=== PATIENT | male | born 1980 ===

== ENCOUNTER 2017-03-27 12:10 | Observation (INO) | payer SELFPAY ==
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
[2017-03-27 13:11] LABS: BASO # 0.04 K/mm3 (0.0-2.0); BASO % 0.6 % (0.0-3.0); EOS # 0.3 (0.0-0.7); EOS % 3.8 % (1.5-5.0); GRAN # 4.46 (1.4-6.5); GRAN % 62.2 % (50.0-68.0); HEMOGLOBIN 15.1 gm/dL (14.0-18.0); LYMPH # 1.8 (1.2-3.4); MEAN CELL VOLUME 85.2 fL (80.0-105.0); MEAN CORPUSCULAR HEMOGLOBIN 29.4 pg (25.0-35.0); MEAN CORPUSCULAR HGB CONC 34.6 g/dl (31.0-37.0); MEAN PLATELET VOLUME 9.9 fl (7.0-11.0); MONO # 0.6 (0.1-0.6); MONO % 8.4 % (1.0-6.0); PLATELET COUNT 249 10^3/uL (120.0-450.0); RBC 5.13 10^6/uL (3.5-6.1); RED CELL DISTRIBUTION WIDTH 13.5 % (11.5-14.5); WHITE BLOOD COUNT 7.2 10^3/ul (4.5-11.0)
[2017-03-27 13:16] LABS: INR 0.98 (0.93-1.08); PROTHROMBIN TIME 10.6 Seconds (9.9-11.8)
[2017-03-27 13:19] LABS: ALB/GLOB RATIO 1.1 (1.1-1.8); ALBUMIN 4.2 g/dL (3.0-4.8); ALT/SGPT 89 U/L (7-56); AST/SGOT 60 U/L (15-59); BILIRUBIN,DIRECT 0.4 mg/dL (0.0-0.4); BLOOD UREA NITROGEN 16 mg/dL (7-21); CALCIUM 9.3 mg/dL (8.4-10.5); GFR AFRICAN-AMERICAN > 60; GFR NON-AFRICAN AMERICAN > 60; LIPASE 71 U/L (23-300); MAGNESIUM 1.6 mg/dL (1.7-2.2)
[2017-03-27] MEDS ORDERED: Iodixanol 320 MG/ML 100 ML BOTTLE IV ONE (13:25)
[2017-03-27 13:30] LABS: B-TYPE NATRIURETIC PEPTIDE 24.2 pg/mL (0-450); TROPONIN I < 0.01 ng/mL
[2017-03-27] MEDS ORDERED: Iodixanol 320 mg/ml 150 ml Bottle IV ONE (13:45)
--- NOTE | 2017-03-27 14:06 | US ---
HISTORY: epigastric abd pain COMPARISON: None. TECHNIQUE: Sonographic evaluation of the abdomen. FINDINGS: LIVER: Measures 17.6 cm. Mild increased echogenicity of the liver parenchyma. Borderline prominent liver size -patient noted to have a large body habitus No mass. No intrahepatic bile duct dilatation. GALLBLADDER: Unremarkable. No gallstones. COMMON BILE DUCT: Measures 3.6 mm. No stones. No dilatation. PANCREAS: Unremarkable as visualized. No mass. No ductal dilatation. RIGHT KIDNEY: Measures 10.5 x 3.8 x 6.4cm. Normal echogenicity. No calculus, mass, or hydronephrosis. LEFT KIDNEY: Measures 11.4 x 4.9 x 6.1cm. Normal echogenicity. No calculus, mass, or hydronephrosis. SPLEEN: Normal in size and contour. No mass. AORTA: Not visualized- prominent bowel gas and large body habitus IVC: Not visible -prominent bowel gas and large body habitus OTHER FINDINGS: None. IMPRESSION: Borderline mild hepatomegaly. Probable hepatic steatosis. Large body habitus noted - probable possibly contributing to these findings. No gallbladder pathology noted
--- NOTE | 2017-03-27 14:30 | RAD ---
HISTORY: chest pain COMPARISON: No prior. TECHNIQUE: Chest PA and lateral FINDINGS: LUNGS: No active pulmonary disease. PLEURA: No significant pleural effusion identified. No pneumothorax apparent. CARDIOVASCULAR: Normal. OSSEOUS STRUCTURES: No significant abnormalities. VISUALIZED UPPER ABDOMEN: Normal. OTHER FINDINGS: None. IMPRESSION: No active disease.
--- NOTE | 2017-03-27 14:53 | CT ---
PROCEDURE: CT Angiography Chest, Abdomen and Pelvis with and without intravenous contrast HISTORY: cp to the back - r/o dissection/PE COMPARISON: None. TECHNIQUE: Contiguous axial images of the chest, abdomen and pelvis were obtained in the phase of aortic enhancement. A noncontrast enhanced CT of the chest was also obtained to evaluate for possible intramural thrombus. Coronal and sagittal reformats were generated. IV dose administered: 150 cc of Visipaque Radiation dose: Total exam DLP = 1486 mGy-cm. This CT exam was performed using one or more of the following dose reduction techniques: Automated exposure control, adjustment of the mA and/or kV according to patient size, and/or use of iterative reconstruction technique. FINDINGS: CT ANGIOGRAPHY OF THE CHEST WITH & WITHOUT CONTRAST: AORTA (CHEST AND ABDOMEN): The thoracic and abdominal aorta are unremarkable, without aneurysm, dissection or rupture. No intramural thrombus identified in the thoracic aorta on the non-contrast ct of the chest. The celiac axis, superior mesenteric artery, inferior mesenteric artery and the renal arteries are widely patent. The pelvic arteries are unremarkable. LUNGS: Clear. No nodule, mass or consolidation. MEDIASTINUM: Unremarkable. Normal caliber aorta and pulmonary arterial trunk. No aortic dissection. Normal size heart. LYMPH NODES: Unremarkable. PLEURA: Unremarkable. No pneumothorax. No pleural fluid. BONES: Unremarkable. OTHER FINDINGS: None. CT ANGIOGRAPHY OF THE ABDOMEN AND PELVIS WITH CONTRAST: LIVER: There is diffuse fatty infiltration of the liver GALLBLADDER AND BILE DUCTS: Unremarkable. PANCREAS: Unremarkable. No gross lesion or ductal dilatation. SPLEEN: Unremarkable. ADRENALS: Unremarkable. No mass. KIDNEYS AND URETERS: Unremarkable. No hydronephrosis. No solid mass. VASCULATURE: Unremarkable. No aortic aneurysm. STOMACH AND BOWEL: Unremarkable. No obstruction. No gross mural thickening. APPENDIX: Normal appendix. PERITONEUM: Unremarkable. No free fluid. No free air. LYMPH NODES: Unremarkable. No enlarged lymph nodes. BLADDER: Unremarkable. REPRODUCTIVE: Unremarkable. BONES: No acute fracture. OTHER FINDINGS: None. IMPRESSION: No evidence of dissection or aneurysm. No evidence of pulmonary embolus.
[2017-03-27 15:02] LABS: PH,URINE 6.5 (4.7-8.0); URINE BILIRUBIN NEGATIVE (NEGATIVE); URINE BLOOD NEGATIVE (NEGATIVE); URINE GLUCOSE (UA) NEGATIVE (NEGATIVE); URINE LEUKOCYTE ESTERASE NEGATIVE Leu/uL (NEGATIVE); URINE NITRATE NEGATIVE (NEGATIVE); URINE PROTEIN NEGATIVE mg/dL (<30 mg/dL); URINE UROBILINOGEN 0.2 E.U./dL (<1 E.U./dL)
[2017-03-27 15:10] LABS: URINE APPEARANCE CLEAR (CLEAR); URINE COLOR LIGHT YELLOW (YELLOW)
[2017-03-27 15:37] LABS: BARBITURATES, UR NEGATIVE (NEGATIVE); BENZODIAZEPINES, UR NEGATIVE (NEGATIVE); OPIATES, UR NEGATIVE (NEGATIVE); PHENCYCLIDINE, UR NEGATIVE (NEGATIVE)
[2017-03-27 17:01] VITALS: BMI 29.2
[2017-03-27] MEDS ORDERED: Pneumococcal 23-Valent Vaccine IM ONE (17:01)
[2017-03-27] MEDS ORDERED: Magnesium Sulfate 2 GM in Sodium Chloride 0.9% 100 ML IVPB ONE (17:19)
[2017-03-27 21:19] LABS: TROPONIN I < 0.01 ng/mL
--- NOTE | 2017-03-27 21:33 | CON ---
DATE: 03/27/2017 REASON FOR CONSULTATION: Followup cardiac evaluation, chest pain. BRIEF CLINICAL HISTORY: This is a 36-year-old male with no significant past medical history except history of gastritis, history of endoscopy 2 years ago, and takes off and on Zantac when he takes fatty food and citrus food, came in with 2 days history of chest pain, front of the chest, epigastric area, goes to the back, came to the emergency room. Denies any prior episode of chest pain, dyspnea on exertion, or shortness of breath on exertion. PAST MEDICAL HISTORY: As mentioned, history of gastritis, history of endoscopy 2 years ago. FAMILY HISTORY: Noncontributory. No history of coronary artery disease. SOCIAL HISTORY: Smokes 6 to 7 cigarettes a day. Denies any history of alcohol abuse. Denies any history of substance abuse. CURRENT MEDICATIONS: None, but takes every now and then Zantac at bedtime when he takes fatty food or citrus fruit or food. REVIEW OF SYSTEMS: As per HPI. PHYSICAL EXAMINATION GENERAL: Height of the patient 5 feet 11 inches, weight of the patient 210 pounds, body mass index 29.3 kg/m2. VITAL SIGNS: Temperature afebrile, heart rate 80, blood pressure 124/72. HEENT: PERRLA. Extraocular muscles intact. NECK: Supple. No carotid bruit or thyromegaly. HEART: S1, S2 regular. LUNGS: Chest clear to auscultation. ABDOMEN: Soft. EXTREMITIES: Clubbing and cyanosis negative. LABORATORY DATA: Blood workup as follows, WBC 7.8, hemoglobin 15.0, hematocrit 43.7, platelet count 249. Chemistry shows sodium 137, potassium 4.1, chloride 103, carbon dioxide 27, anion gap of 13, BUN 16, creatinine 1.1, magnesium 1.6, troponin 0.01. EKG shows normal sinus rhythm, acute ST-T changes. IMPRESSION: Chest pain, appears atypical, cannot rule out underlying coronary artery disease, multiple risk factors for coronary artery disease, history of gastritis, hypomagnesemia. RECOMMENDATION: Supplement magnesium. Followup CPK, troponin. We will get lipid profile, TSH, hemoglobin A1c. If troponin remains negative, we will get an echo and a stress test in the morning. Keep n.p.o. after 12 midnight for stress test. Thank you Dr. Pino, for the opportunity in taking care of the patient. Hannah Guardado MD cc: Susana Pino MD
--- NOTE | 2017-03-27 22:55 | CP.PCM.PN ---
Subjective - Date & Time of Evaluation Date of Evaluation: 03/27/17 Time of Evaluation: 22:38 - Subjective Subjective: Pt seen for his c/o insomnia.He states he takes Nyquil at home whenever he needs something to fall asleep. He denies any active chest pain or any other complaints. He is admitted for c/o chest pain. PMH:HPylori Objective - Vital Signs/Intake and Output Vital Signs (last 24 hours): Temp Pulse Resp BP Pulse Ox 97.7 F 72 20 103/55 L 98 03/27/17 17:31 03/27/17 22:00 03/27/17 17:31 03/27/17 17:31 03/27/17 17:20 - Medications Medications: Current Medications Aspirin (Aspirin Chewable) 81 mg PO DAILY GIOVANNI Enoxaparin Sodium (Lovenox) 40 mg SC DAILY GIOVANNI PRN Reason: Protocol Famotidine (Pepcid) 20 mg PO DAILY PRN PRN Reason: Heartburn - Labs Labs: PT 10.6 Seconds (9.9-11.8) 03/27/17 12:50 INR 0.98 (0.93-1.08) 03/27/17 12:50 APTT 26.0 Seconds (23.7-30.8) 03/27/17 12:50 - Constitutional Appears: No Acute Distress - Eye Exam Eye Exam: PERRL - ENT Exam ENT Exam: Mucous Membranes Moist - Neck Exam Neck Exam: Normal Inspection - Respiratory Exam Respiratory Exam: Clear to Ausculation Bilateral - Cardiovascular Exam Cardiovascular Exam: REGULAR RHYTHM - GI/Abdominal Exam GI & Abdominal Exam: Soft, Normal Bowel Sounds - Extremities Exam Extremities Exam: Normal Inspection - Neurological Exam Neurological Exam: Awake, Oriented x3 - Psychiatric Exam Psychiatric exam: Normal Affect - Skin Skin Exam: Dry, Warm Assessment and Plan - Assessment and Plan (Free Text) Assessment: Insomnia Plan: Benadryl 25 mg po
[2017-03-28 00:27] VITALS: O2SAT 97
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
[2017-03-28 05:37] LABS: BASO # 0.03 K/mm3 (0.0-2.0); BASO % 0.4 % (0.0-3.0); EOS # 0.3 (0.0-0.7); EOS % 4.4 % (1.5-5.0); GRAN # 5.11 (1.4-6.5); GRAN % 65.6 % (50.0-68.0); LYMPH # 1.8 (1.2-3.4); LYMPH % 22.8 % (22.0-35.0); MEAN CELL VOLUME 85.3 fL (80.0-105.0); MEAN CORPUSCULAR HEMOGLOBIN 29.5 pg (25.0-35.0); MEAN CORPUSCULAR HGB CONC 34.6 g/dl (31.0-37.0); MEAN PLATELET VOLUME 9.8 fl (7.0-11.0); MONO # 0.5 (0.1-0.6); MONO % 6.8 % (1.0-6.0); PLATELET COUNT 249 10^3/uL (120.0-450.0); RBC 5.09 10^6/uL (3.5-6.1); RED CELL DISTRIBUTION WIDTH 13.1 % (11.5-14.5); WHITE BLOOD COUNT 7.8 10^3/ul (4.5-11.0)
[2017-03-28 05:57] LABS: BLOOD UREA NITROGEN 19 mg/dL (7-21); GFR AFRICAN-AMERICAN > 60; GFR NON-AFRICAN AMERICAN > 60; HDL CHOLESTEROL 35 mg/dL (29-60)
[2017-03-28 06:07] LABS: TROPONIN I < 0.01 ng/mL
[2017-03-28 06:08] LABS: LDL CHOLESTEROL 109 mg/dL (0-129)
[2017-03-28] MEDS ORDERED: Pantoprazole 40 mg EC Tab PO STA (08:49)
--- NOTE | 2017-03-28 09:47 | CARD ---
APPROVED REPORT EKG Measurement Heart [id number] <Conclusion> Normal sinus rhythm Normal ECG
[2017-03-28] MEDS ORDERED: Enoxaparin 40 mg Syringe SC SCH (10:00)
--- NOTE | 2017-03-28 11:27 | PN ---
DATE: 03/28/2017 REASON FOR CONSULTATION: Followup cardiac evaluation, chest pain. SUBJECTIVE: The patient complained of same chest pain, pushing from front to the back of the chest. PHYSICAL EXAMINATION: GENERAL: Not in apparent distress. Sleeping and waking up complaining of chest pain. VITAL SIGNS: As follows: Temperature afebrile, heart rate 82, blood pressure 125/83. HEENT: PERRLA. Extraocular muscles are intact. NECK: Supple. No carotid bruits or thyromegaly. HEART: S1 and S2. Regular. LUNGS: Chest clear to auscultation. ABDOMEN: Soft. EXTREMITIES: Clubbing and cyanosis negative. LABORATORY DATA: Blood workup as follows: WBC 7.8, hemoglobin 15, hematocrit 43.4, and platelet count 249. Chemistry shows a sodium of 130, potassium 4.0, chloride 101 ,carbon dioxide 25, anion gap of 14, BUN 19, creatinine 1.2, troponin is 0.01 and negative x3. Triglycerides 408, cholesterol 198, LDL 109, HDL 35. TSH is 0.89. IMPRESSION: Atypical chest pain, no evidence for acute myocardial infarction; hypertriglyceridemia; hypomagnesemia. CAT scan of the abdomen and pelvis shows no evidence of pulmonary embolism and no evidence of dissection. Ultrasound of the abdomen was tedious but no significant pathology except mildly borderline enlarged liver. A 36-year-old male with no significant past medical history, except gastroesophageal reflux who complained of chest pain, atypical. So far no evidence of acute myocardial infarction, except hypertriglyceridemia and hypomagnesemia. RECOMMENDATIONS: We will get a stress test and echo today. Rest of the workup is negative. Supplement magnesium. Repeat magnesium level too. We will start Lopid because of hypertriglyceridemia to prevent pancreatitis 600 mg p.o. b.i.d. We will get a stress test and echo today. Further recommendation after finding of the initial workup. We will follow with you. Thank Dr. Pino for the opportunity in taking care of Chris Guillory. Hannah Guardado MD
--- NOTE | 2017-03-28 13:07 | CARD ---
APPROVED REPORT EXAM: Two-dimensional and M-mode echocardiogram with Doppler and color Doppler. INDICATION Chest Pain 2D DIMENSIONS Left Atrium (2D)3.5 (1.6-4.0cm)IVSd1.0 (0.7-1.1cm) LVDd4.1 (3.9-5.9cm)PWd0.8 (0.7-1.1cm) LVDs2.9 (2.5-4.0cm)FS (%) 30.8 % LVEF (%)58.9 (>50%) M-Mode DIMENSIONS Aortic Root2.70 (2.2-3.7cm)Aortic Cusp Exc.1.80 (1.5-2.0cm) Aortic Valve AoV Peak Wlgbdxwe719.0cm/Jania Peak GR.4mmHg Mitral Valve MV E Gcbefwke01.2cm/sMV A Gdsiuumm51.8cm/sE/A ratio1.3 TDI E/Lateral E'0.0E/Medial E'0.0 Tricuspid Valve TR Peak Zobesjav392va/sRAP [id number] Peak Gr.11mmHg [id number] LEFT VENTRICLE The left ventricle is normal size. There is normal left ventricular wall thickness. The left ventricular function is normal.EF-55-60% There is normal LV segmental wall motion. The left ventricular diastolic function is normal. No left ventricle thrombus noted on this study. There is no ventricular septal defect visualized. There is no left ventricular aneurysm. There is no mass noted in the left ventricle. RIGHT VENTRICLE The right ventricle is normal size. There is normal right ventricular wall thickness. The right ventricular systolic function is normal. ATRIA The left atrium size is normal. The right atrium size is normal. The interatrial septum is intact with no evidence for an atrial septal defect. AORTIC VALVE The aortic valve is thickened but opens well. There is trace aortic regurgitation. There is no aortic valvular stenosis. There is no aortic valvular vegetation. MITRAL VALVE The mitral valve is thickened but opens well. Mitral regurgitation is trace. There is no mitral valve stenosis. There is no evidence of mitral valve prolapse. TRICUSPID VALVE The tricuspid valve leaflets are thickened , but open well. There is trace tricuspid regurgitation.RVSP-21 mmof hg. There is no tricuspid valve stenosis. There is no tricuspid valve prolapse or vegetation. PULMONIC VALVE The pulmonary valve is normal in structure. There is no pulmonic valvular regurgitation. There is no pulmonic valvular stenosis. GREAT VESSELS The aortic root is normal in size. The ascending aorta is normal in size. The pulmonary artery is normal. The IVC is normal in size and collapses >50% with inspiration. PERICARDIAL EFFUSION There is no pleural effusion. There is no pericardial effusion. <Conclusion> Normal Chamber Size. EF-55-60% Trace MR/TR RVSP-21 mmof Hg. No PE/ vegetation noted.
[2017-03-28 13:56] VITALS: PULSE 68
[2017-03-28 14:13] VITALS: BP 134/84; RESP 16; TEMP 98
--- NOTE | 2017-03-28 23:02 | CARD ---
APPROVED REPORT Protocol: FABRIZIO Test Type: Sestamibi Stress Test Attending Physician: Dr. Guardado Referring Physician: Dr. Pino Test Indications: Chest Pain, SOB Height:5 ft 11 in Weight:210lbs Medications: ASpirin,Enoxaparin,Famotidine, Protonix Medical History: 36 y/o male. No cardiac hx.Pt. having chest pain. Target HR: 183 bpm Resting ECG: normal Resting Heart Rate: 91 bpm Resting Blood Pressure: 120/86mmHg Submaximum (85%): 156 bpm POST EXERCISE Reason for Termination: Fatigue Target HR: No Max HR: 171 bpm 96% of Maximum Predicted HR: 183 bpm Exercise duration: 09:15 min:sec, 4 Stage Exercise capacity: 10.5METs Max Blood Pressure: 160/80mmHg Blood Pressure response to exercise: normal resting BP - appropriate response Heart Rate response to exercise: appropriate Chest Pain: No, none Angina index: 0 Arrhythmia: No, none ST Change: No, none Deviation: 0 mm TEST SUMMARY [id number]:250.00.01.060/.0. [id number]/86.0. PRETESTWARM-UP06:500.00.01.092/.0. EXERCISESTAGE 103:[id number]/84.0. EXERCISESTAGE 203:[id number]/80.0. EXERCISESTAGE 303:[id number]/80.0. EXERCISESTAGE 400:[id number]/80.0. SPEGSMTA77:060.00.01.920054/70.0. INTERPRETATION Stress EKG Conclusion: Negative stresstest for ischemia and for chest pain, Nuclear scan to follow. ( Off Note:at the end of stress test during recovery pt dropped BP to 100/60 and felt dizzy, 250 N/s given Bp improved to 124/70, no c/o of chest pain nor any changes in ECG noted, pt was continously being monitored, Pt did not eat well yesteday and was NPO more than 15 hours, * pm last night).. Signed by Geo Electronically Approved: 03/28/2017 11:38:17 EXAM: Myocardial Perfusion REST/STRESS Stress Test Type: Exercise Treadmill Imaging Protocol Rest Spect myocardial perfusion imaging was performed in supine position 45 minutes following the injection of 10.4 mCi of Tc-99 Myoview. At peak stress, the patient was injected intravenously with 30.4mCi of Tc-99 tetrofosmin after an exercise time of 9 minutes and 15 seconds. Gated Stress Spect was performed 50 minutes after intravenous Tc-99 Myoview injection. The images were gated to evaluate regional wall motion and calculate ventricular ejection fraction.Images were reconstructed using backfilter projection method in short horizontal and verticle long axis. Spect slices were generated. LV Perfusion The quality of the study is good. The left ventricle is normal in size. The right ventricle is unremarkable. The lung uptake is within normal limits. The distribution of tracer reveals normal uptake pattern throughout the LV myocardium on the stress study. The rest myocardial perfusion study shows no significant change. Wall Motion Wall motion study shows good contractility of the left ventricle. LVEF = 63%. Conclusion 1. Normal SPECT myocardial perfusion study. 2. Normal gated wall motion of the left ventricle.
[2017-03-29] MEDS ORDERED: Pantoprazole 40 mg EC Tab PO SCH (06:00)
--- NOTE | 2017-03-29 23:40 | CP.PCM.DIS ---
Provider - Provider Date of Admission: 03/27/17 15:22 for 03/28/17 Attending physician: Susana Pino MD Primary care physician: NO PRIMARY CARE PROVIDER Time Spent in preparation of Discharge (in minutes): 50 Diagnosis - Discharge Diagnosis (1) Hypercholesteremia Status: Acute (2) Hypercholesterolemia with endogenous hyperglyceridemia Status: Acute (3) Obesity Status: Acute Hospital Course - Lab Results Lab Results: Most Recent Lab Values WBC 7.8 10^3/ul (4.5-11.0) 03/28/17 04:30 RBC 5.09 10^6/uL (3.5-6.1) 03/28/17 04:30 Hgb 15.0 gm/dL (14.0-18.0) 03/28/17 04:30 Hct 43.4 % (42.0-52.0) 03/28/17 04:30 MCV 85.3 fL (80.0-105.0) 03/28/17 04:30 MCH 29.5 pg (25.0-35.0) 03/28/17 04:30 MCHC 34.6 g/dl (31.0-37.0) 03/28/17 04:30 RDW 13.1 % (11.5-14.5) 03/28/17 04:30 Plt Count 249 10^3/uL (120.0-450.0) 03/28/17 04:30 MPV 9.8 fl (7.0-11.0) 03/28/17 04:30 Gran % 65.6 % (50.0-68.0) 03/28/17 04:30 Lymph % (Auto) 22.8 % (22.0-35.0) 03/28/17 04:30 Ellis % (Auto) 6.8 % (1.0-6.0) H 03/28/17 04:30 Eos % (Auto) 4.4 % (1.5-5.0) 03/28/17 04:30 Baso % (Auto) 0.4 % (0.0-3.0) 03/28/17 04:30 Gran # 5.11 (1.4-6.5) 03/28/17 04:30 Lymph # 1.8 (1.2-3.4) 03/28/17 04:30 Ellis # 0.5 (0.1-0.6) 03/28/17 04:30 Eos # 0.3 (0.0-0.7) 03/28/17 04:30 Baso # 0.03 K/mm3 (0.0-2.0) 03/28/17 04:30 PT 10.6 Seconds (9.9-11.8) 03/27/17 12:50 INR 0.98 (0.93-1.08) 03/27/17 12:50 APTT 26.0 Seconds (23.7-30.8) 03/27/17 12:50 Sodium 136 mmol/L (132-148) 03/28/17 04:30 Potassium 4.1 mmol/L (3.6-5.0) 03/28/17 04:30 Chloride 101 mmol/L (98-107) 03/28/17 04:30 Carbon Dioxide 25 mmol/L (21-33) 03/28/17 04:30 Anion Gap 14 (10-20) 03/28/17 04:30 BUN 19 mg/dL (7-21) 03/28/17 04:30 Creatinine 1.2 mg/dL (0.5-1.4) 03/28/17 04:30 Est GFR ( Amer) > 60 03/28/17 04:30 Est GFR (Non-Af Amer) > 60 03/28/17 04:30 Random Glucose 93 mg/dL (70-110) 03/28/17 04:30 Hemoglobin A1c 5.6 % (4.2-6.5) 03/28/17 04:30 Calcium 9.0 mg/dL (8.4-10.5) 03/28/17 04:30 Phosphorus 4.2 mg/dL (2.5-4.5) 03/28/17 04:30 Magnesium 2.0 mg/dL (1.7-2.2) 03/28/17 04:30 Total Bilirubin 0.7 mg/dL (0.2-1.3) 03/27/17 12:50 Direct Bilirubin 0.4 mg/dL (0.0-0.4) 03/27/17 12:50 AST 60 U/L (15-59) H 03/27/17 12:50 ALT 89 U/L (7-56) H 03/27/17 12:50 Alkaline Phosphatase 108 U/L (38-133) 03/27/17 12:50 Lactate Dehydrogenase 297 U/L (333-699) L 03/28/17 04:30 Total Creatine Kinase 215 U/L (35-230) 03/28/17 04:30 CK-MB (CK-2) 2.0 ng/mL (0.0-3.6) 03/27/17 20:45 CK-MB (CK-2) % Cancelled 03/27/17 20:45 Troponin I < 0.01 ng/mL 03/28/17 04:30 NT-Pro-B Natriuret Pep 24.2 pg/mL (0-450) 03/27/17 12:50 Total Protein 8.1 g/dL (5.8-8.3) 03/27/17 12:50 Albumin 4.2 g/dL (3.0-4.8) 03/27/17 12:50 Globulin 3.8 gm/dL 03/27/17 12:50 Albumin/Globulin Ratio 1.1 (1.1-1.8) 03/27/17 12:50 Triglycerides 408 mg/dL (35-160) H 03/28/17 04:30 Cholesterol 198 mg/dL (130-200) 03/28/17 04:30 LDL Cholesterol Direct 109 mg/dL (0-129) 03/28/17 04:30 HDL Cholesterol 35 mg/dL (29-60) 03/28/17 04:30 Lipase 71 U/L (23-300) 03/27/17 12:50 TSH 3rd Generation 0.89 mIU/mL (0.46-4.68) 03/28/17 04:30 Urine Color Light yellow (YELLOW) 03/27/17 14:50 Urine Appearance Clear (CLEAR) 03/27/17 14:50 Urine pH 6.5 (4.7-8.0) 03/27/17 14:50 Ur Specific [place] 1.010 (1.005-1.035) 03/27/17 14:50 Urine Protein Negative mg/dL (<30 mg/dL) 03/27/17 14:50 Urine Glucose (UA) Negative mg/dL (NEGATIVE) 03/27/17 14:50 Urine Ketones Negative mg/dL (NEGATIVE) 03/27/17 14:50 Urine Blood Negative (NEGATIVE) 03/27/17 14:50 Urine Nitrate Negative (NEGATIVE) 03/27/17 14:50 Urine Bilirubin Negative (NEGATIVE) 03/27/17 14:50 Urine Urobilinogen 0.2 E.U./dL (<1 E.U./dL) 03/27/17 14:50 Ur Leukocyte Esterase Negative Jah/uL (NEGATIVE) 03/27/17 14:50 Urine Opiates Screen Negative (NEGATIVE) 03/27/17 14:50 Urine Methadone Screen Negative (NEGATIVE) 03/27/17 14:50 Ur Barbiturates Screen Negative (NEGATIVE) 03/27/17 14:50 Ur Phencyclidine Scrn Negative (NEGATIVE) 03/27/17 14:50 Ur Amphetamines Screen Negative (NEGATIVE) 03/27/17 14:50 U Benzodiazepines Scrn Negative (NEGATIVE) 03/27/17 14:50 U Oth Cocaine Metabols Negative (NEGATIVE) 03/27/17 14:50 U Cannabinoids Screen Negative (NEGATIVE) 03/27/17 14:50 - Hospital Course Hospital Course: 36 y.o. male with a past medical history of H.pylori, for which he was treated about 2 years ago, who comes to the ED with c/o mid sternal chest pain radiating to the upper back x 1 week, worsening yesterday and into today. The pain is worse with inspiration. He has also been feeling significant dyspnea on exertion over the past week but no orthopnea. No n/v. Patient also says that he has noticed epigastric pain of late after eating. No dizziness or fever or visual changes or LE swelling or cough. ardiology consult called , stress test done , pt cl by cardio . will f/u stress test as out pt , Discharge Plan - Follow Up Plan Condition: FAIR Disposition: HOME/ ROUTINE Instructions: Chest Pain (ED) Referrals: PCP,NO [Primary Care Provider] -
== END 2017-03-28 16:50 | disposition home or self-care (01) ==
LOC: ED 12:10 → ERH 15:22 → 2RNO 17:09
PROVIDERS: ADMIT Internal Medicine; ATTEND Internal Medicine
DX: R07.89 Other chest pain (principal); R06.02 Shortness of breath; K21.9 Gastro-esophageal reflux disease without esophagitis; E83.42 Hypomagnesemia; K29.70 Gastritis, unspecified, without bleeding; F17.210 Nicotine dependence, cigarettes, uncomplicated; G47.00 Insomnia, unspecified; E78.1 Pure hyperglyceridemia; Z88.6 Allergy status to analgesic agent
CPT/HCPCS: 36415; 71020; 71270; 74175; 76700; 78452; 80048; 80053; 80061; 81003; 82248; 82550; 82553; 83036; 83615; 83690; 83735; 83880; 84100; 84443; 84484; 85025; 85610; 85730; 93005; 93017; 93306; 96374; 99283; A9502; C9113; G0378; G0480; J1650; J3475